=== PATIENT | male | born 1955 | race Caucasian/White ===

== ENCOUNTER 2017-03-09 16:03 | Emergency (ER) | payer MEDICARE, SELFPAY ==
[2017-03-09 16:21] VITALS: BP 77/52; PULSE 113; RESP 16; TEMP 33.6; O2SAT 100; BMI 25.8
[2017-03-09 16:21] LABS: ABG Base Excess -34.9 mmol/L (-2.4-2.3); ABG HCO3 3.6 mmhg (22.0-26.0); ABG Oxygen Saturation 96 % (90-100); ABG PCO2 42.1 mmhg (35.0-45.0); ABG PO2 158.6 mmhg (80-100); ABG TCO2 4.9 mmhg (23-27)
[2017-03-09 16:23] LABS: Oxygen 100% %; Source Right Femoral
[2017-03-09 16:24] LABS: ABG PH 6.55 mmol/L (7.35-7.45)
[2017-03-09 16:25] VITALS: BP 109/66; BP 161/79; BP 58/40; BP 79/62; BP 99/69
--- NOTE | 2017-03-09 16:37 | XR_ITS ---
XR chest portable Ordering Physician: Jocelyne Moya MD Patient Age: 62 years: Male HISTORY: ITS.REASON: INTUBATION TECHNIQUE: AP supine portable chest x-ray CODE BLUE. Respiratory arrest COMPARISON :Right shoulder 03/16/2011 FINDINGS Poor inspiration with diaphragms only down to the anterior third rib on this limited portable supine study.. apparently a airway tube was placed rather than the endotracheal tube per technologist. Prominent bibasilar atelectasis and airspace disease. Difficult to exclude associated infiltrate but mainly atelectasis and poor expansion of lungs. There is prominent and beneath left hemidiaphragm most likely reflecting pronounced gaseous distention of the stomach. Also generous gas is seen within the large bowel at the hepatic flexure. The heart is normal in size. Aorta mildly ectatic at aortic knob. Generous width of the mediastinum most likely reflect a supine portable projection with suboptimal inspiration. Defibrillator or AED pad overlying the right chest . Arthritic changes right shoulder. Scoliosis spine. IMPRESSION: Low lung volume bilaterally with pronounced bibasilar atelectasis. Pronounced bibasilar airspace disease . prominent air beneath left hemidiaphragm most likely reflects right prominent gaseous distention of stomach. Generous gas at the hepatic flexure also noted.
--- NOTE | 2017-03-09 16:56 | [facility].EDGENADL ---
ED Disposition Clinical Impression: PEA (Pulseless electrical activity), Sepsis, Mental status, decreased Hypothermia Qualifiers: Encounter type: initial encounter Qualified Code(s): T68.XXXA - Hypothermia, initial encounter Abdominal pain Qualifiers: Abdominal location: generalized Qualified Code(s): R10.84 - Generalized abdominal pain Disposition: Xfer Short-Term Hosp Condition on Discharge: Critical Forms: Transfer Record - ED - Critical Care Critical Care Time: Yes Attestation: On 03/09/17, the high probability of a clinically significant, sudden or life threatening deterioration of the following system(s) required my full and direct attention, intervention and personal management. The time I documented below is in addition to time spent performing reported procedures but includes the following listed in this critical care notation. Total Critical Care Time: 80 Vital system(s) involved:: Circulatory Failure, Respiratory Failure, Shock (Septic) My critical care processes included: Assessment & monitoring of V/S, Initial and Re-exams, Data Review/Interpretation, Coordinating Care, Medication Orders and management, Documentation Medical Decision Making Vital Signs: 03/09/17 16:21 03/09/17 18:15 Temperature 92.5 F L 91.5 F L Temperature Source Rectal Rectal Pulse Rate 72 Pulse Rate [Left Brachial] 113 H Respiratory Rate 16 12 Blood Pressure 62/43 Blood Pressure [Left Arm] 77/52 Blood Pressure Mean [Left Arm] 60 Blood Pressure Source Automatic Cuff Blood Pressure Source [Left Arm] Automatic Cuff Blood Pressure Position Supine Blood Pressure Position [Left Arm] Supine 02 Sat by Pulse Oximetry 100 Oxygen Delivery Method Non-Rebreather Mechanical Ventilation - Lab Data Lab results reviewed: Yes: I reviewed the patient's lab results. Lab Results 03/09/17 16:12: POC Glucose 239 03/09/17 16:15: Specimen Source Right femoral, O2 % 100%, ABG pH 6.55 L*, ABG pCO2 42.1, ABG pO2 158.6 H, ABG HCO3 3.6 L, ABG Total CO2 4.9 L, ABG O2 Saturation 96, ABG Base Excess -34.9 L, Hoang Test Unacceptable 03/09/17 16:30: Urine Color Yellow, Urine Appearance Cloudy, Urine pH 6.0, Ur Specific [place] 1.025, Urine Protein 100, Urine Glucose (UA) >=1000, Urine Ketones Negative, Urine Blood Trace-i, Urine Nitrate Negative, Urine Bilirubin Negative, Urine Urobilinogen 0.2, Ur Leukocyte Esterase Negative, Urine WBC 20-50, Ur Squamous Epith Cells 10-20, Urine Bacteria 4+ 03/09/17 16:30: Lactic Acid 24.3 H 03/09/17 16:30: WBC 25.4 H*, RBC 5.38, Hgb 16.0, Hct 59.2 H, MCV 110.2 H, MCH 29.8, MCHC 27.1 L, RDW 13.9, Plt Count 371, MPV 8.4, Neut % (Auto) 73.4, Lymph % (Auto) 18.6, [place] % (Auto) 6.5, Eos % (Auto) 0.8, Baso % (Auto) 0.8, Neut # (Auto) 18.7 H, Lymph # (Auto) 4.7 H, [place] # (Auto) 1.7 H, Eos # (Auto) 0.2, Baso # (Auto) 0.2, Total Counted 100, Neutrophils % (Manual) 64, Band Neutrophils % 3.0, Lymphocytes % (Manual) 21, Atypical Lymphs % 1.0, Monocytes % (Manual) 9, Eosinophils % (Manual) 2, Platelet Estimate Normal, RBC Morphology Normal 03/09/17 16:30: Sodium 140, Potassium 5.1, Chloride 97 L, Carbon Dioxide 8 L*, Anion Gap 40.1 H, BUN 33 H, Creatinine 3.90 H, Estimated Creat Clear 20, Estimated GFR 16 L*, Est GFR ( Amer) 19 L*, Glucose 299 H 03/09/17 16:30: Total Bilirubin 0.2, Direct Bilirubin 0.1, AST 27, ALT 23, Alkaline Phosphatase 86, Total Protein 7.8, Albumin 3.8 Result diagrams: 03/09/17 16:30 03/09/17 16:30 Orders (Tests/Meds): ED MEDICATIONS Generic Name Dose Route Start Last Admin Trade Name Freq PRN Reason Stop Dose Admin Epinephrine HCl 1 mg 03/09/17 20:13 03/09/17 16:32 Epinephrine 0.1mg/Ml 10ml Syringe IV 04/08/17 20:12 1 mg NEEDED PRN Administration Code Blue Med Administration Piperacillin Sod/Tazobactam 50 mls @ 100 mls/hr 03/09/17 20:15 03/09/17 18:00 Sod 3.375 gm/ Sodium Chloride IV 04/08/17 20:14 100 mls/hr Q6H TODD Administration Protocol La
--- NOTE | 2017-03-09 17:03 | ED_ITS ---
ED Disposition Clinical Impression: PEA (Pulseless electrical activity), Sepsis, Mental status, decreased Hypothermia Qualifiers: Encounter type: initial encounter Qualified Code(s): T68.XXXA - Hypothermia, initial encounter Abdominal pain Qualifiers: Abdominal location: generalized Qualified Code(s): R10.84 - Generalized abdominal pain Disposition: Xfer Short-Term Hosp Condition on Discharge: Critical Forms: Transfer Record - ED - Critical Care Critical Care Time: Yes Attestation: On 03/09/17, the high probability of a clinically significant, sudden or life threatening deterioration of the following system(s) required my full and direct attention, intervention and personal management. The time I documented below is in addition to time spent performing reported procedures but includes the following listed in this critical care notation. Total Critical Care Time: 80 Vital system(s) involved:: Circulatory Failure, Respiratory Failure, Shock ( Septic) My critical care processes included: Assessment & monitoring of V/S, Initial and Re-exams, Data Review/Interpretation, Coordinating Care, Medication Orders and management, Documentation Medical Decision Making Vital Signs: 03/09/17 16:21 03/09/17 18:15 Temperature 92.5 F L 91.5 F L Temperature Source Rectal Rectal Pulse Rate 72 Pulse Rate [Left Brachial] 113 H Respiratory Rate 16 12 Blood Pressure 62/43 Blood Pressure [Left Arm] 77/52 Blood Pressure Mean [Left Arm] 60 Blood Pressure Source Automatic Cuff Blood Pressure Source [Left Arm] Automatic Cuff Blood Pressure Position Supine Blood Pressure Position [Left Arm] Supine 02 Sat by Pulse Oximetry 100 Oxygen Delivery Method Non-Rebreather Mechanical Ventilation - Lab Data Lab results reviewed: Yes: I reviewed the patient's lab results. Lab Results 03/09/17 16:12: POC Glucose 239 03/09/17 16:15: Specimen Source Right femoral, O2 % 100%, ABG pH 6.55 L*, ABG pCO2 42.1, ABG pO2 158.6 H, ABG HCO3 3.6 L, ABG Total CO2 4.9 L, ABG O2 Saturation 96, ABG Base Excess -34.9 L, Hoang Test Unacceptable 03/09/17 16:30: Urine Color Yellow, Urine Appearance Cloudy, Urine pH 6.0, Ur Specific [place] 1.025, Urine Protein 100, Urine Glucose (UA) >=1000, Urine Ketones Negative, Urine Blood Trace-i, Urine Nitrate Negative, Urine Bilirubin Negative, Urine Urobilinogen 0.2, Ur Leukocyte Esterase Negative, Urine WBC 20- 50, Ur Squamous Epith Cells 10-20, Urine Bacteria 4+ 03/09/17 16:30: Lactic Acid 24.3 H 03/09/17 16:30: WBC 25.4 H*, RBC 5.38, Hgb 16.0, Hct 59.2 H, MCV 110.2 H, MCH 29.8, MCHC 27.1 L, RDW 13.9, Plt Count 371, MPV 8.4, Neut % (Auto) 73.4, Lymph % (Auto) 18.6, [place] % (Auto) 6.5, Eos % (Auto) 0.8, Baso % (Auto) 0.8, Neut # ( Auto) 18.7 H, Lymph # (Auto) 4.7 H, [place] # (Auto) 1.7 H, Eos # (Auto) 0.2, Baso # (Auto) 0.2, Total Counted 100, Neutrophils % (Manual) 64, Band Neutrophils % 3.0, Lymphocytes % (Manual) 21, Atypical Lymphs % 1.0, Monocytes % (Manual) 9, Eosinophils % (Manual) 2, Platelet Estimate Normal, RBC Morphology Normal 03/09/17 16:30: Sodium 140, Potassium 5.1, Chloride 97 L, Carbon Dioxide 8 L*, Anion Gap 40.1 H, BUN 33 H, Creatinine 3.90 H, Estimated Creat Clear 20, Estimated GFR 16 L*, Est GFR ( Amer) 19 L*, Glucose 299 H 03/09/17 16:30: Total Bilirubin 0.2, Direct Bilirubin 0.1, AST 27, ALT 23, Alkaline Phosphatase 86, Total Protein 7.8, Albumin 3.8 Result diagrams: 03/09/17 16:30 03/09/17 16:30 Orders (Tests/Meds): ED
[2017-03-09 17:04] LABS: Microscopic, Urine URINE MICROSCOPIC (MICROSCOPIC)
[2017-03-09 17:07] LABS: Anion Gap 40.1 mEq/L (5-15); Appearance,Urine CLOUDY (Clear); Basophils # 0.2 K/mm3 (0-0.2); Basophils % 0.8 % (0.1-2.0); Bilirubin,Urine Negative (Negative); Blood Urea Nitrogen 33 mg/dL (7-18); Blood, Urine TRACE-I (Negative); Chloride 97 mmol/L (98-107); Color,Urine YELLOW (Yellow); Creatinine Clearance Estimated 20 mL/min (0-300); Eosinophils # 0.2 K/mm3 (0.0-0.4); Eosinophils % 0.8 % (0.1-12.0); Estimated Glomerular Filt Rate 16 ml/min (>60); GFR (African American) 19 ML/MIN (>60); Glucose 299 mg/dL (74-106); Glucose,Urine (UA) >=1000 (Negative); Hematocrit 59.2 % (42.0-52.0); Ketones,Urine Negative (Negative); Leukocyte Esterase,Urine Negative (Negative); Lymphocytes # 4.7 K/mm3 (0.7-4.5); Lymphocytes % 18.6 K/mm3 (10-50); Mean Corpuscular HGB Conc 27.1 g/dL (31.8-35.4); Mean Corpuscular Hemoglobin 29.8 pg (27.0-31.2); Mean Corpuscular Volume 110.2 fl (80-94); Mean Platelet Volume 8.4 fl (7.4-10.4); Monocytes # 1.7 K/mm3 (0.1-1.0); Monocytes % 6.5 % (1.7-9.3); Neutrophils # 18.7 K/mm3 (1.8-7.8); Neutrophils % 73.4 % (37.0-80.0); Nitrate,Urine Negative (Negative); Platelet Count 371 K/mm3 (142-424); Potassium 5.1 mmoL/L (3.5-5.1); Protein,Urine 100 (Negative); Red Blood Count 5.38 M/mm3 (4.60-6.20); Red Cell Distribution Width 13.9 % (11.5-17.5); Sodium 140 mmol/L (136-145); Specific Gravity, Urine 1.025 (1.005-1.030); Urobilinogen,Urine 0.2 EU/dl (0.2); White Blood Count 25.4 K/mm3 (4.8-10.8)
[2017-03-09 17:08] LABS: Carbon Dioxide 8 mmol/L (21.0-32.0)
[2017-03-09 17:10] LABS: MANUAL DIFFERENTIAL MANUAL DIFFERENTIAL (MANUAL DIFF)
[2017-03-09 17:15] LABS: Bacteria,Urine 4+ /lpf; WBC,Urine 20-50 #/hpf (0-3)
[2017-03-09 17:33] LABS: Eosinophils % 2 % (0-3); Lymphocytes % 21 % (10-50); Monocytes % 9 % (2-9); Neutrophils % 64 % (42-76); Platelet Estimate Normal; RBC Morphology Normal; Total Cells Counted 100
[2017-03-09 17:42] LABS: Lactic Acid 24.3 mmol/L (0.4-2.0); Reflex Lactic Add Lactic Reflex
[2017-03-09 17:59] LABS: Alanine Aminotransferase 23 U/L (12-78); Albumin Level 3.8 gm/dL (3.4-5.0); Alkaline Phosphatase 86 U/L (46-116); Aspartate Amino Transferase 27 U/L (15-37); Bilirubin,Direct 0.1 mg/dL (0.0-0.2); Bilirubin,Total 0.2 mg/dL (0.2-1.0); Total Protein,Serum 7.8 gm/dL (6.4-8.2)
[2017-03-09 18:15] VITALS: BP 62/43; PULSE 72; RESP 12; TEMP 33.1; O2SAT 100
[2017-03-09 18:48] LABS: POC Glucose,Bedside 239 mg/dL
--- NOTE | 2017-03-09 20:10 | PC.NURSE ---
1642-Regained pulse at this time. Attempting intubation per Dr. Moya and [employer]. Unsuccessful attempt x3. Intubation obtained with LMA per Dr. Moya. Pt placed on ventilator per RT. 1750-[employer] arrived. Intubation obtained per flight crew. Additional EJ started on left side and OG inserted per flight crew.
--- NOTE | 2017-03-09 20:28 | PC.NURSE ---
1600-applied ap hugger, rectal temp 92.5, warm IVF's initiated. 1700-rectal temp 91.5
== END 2017-03-09 18:15 | disposition short-term general hospital (02) ==
PROVIDERS: Emergency Provider Emergency Medicine
DX: R11.2 Nausea with vomiting, unspecified (principal); I46.9 Cardiac arrest, cause unspecified; A41.9 Sepsis, unspecified organism; T68.XXXA Hypothermia, initial encounter; R10.84 Generalized abdominal pain; E11.65 Type 2 diabetes mellitus with hyperglycemia; R94.31 Abnormal electrocardiogram [ECG] [EKG]; I95.0 Idiopathic hypotension
CPT/HCPCS: 31500; 94002; 71045; 80048; 80076; 81001; 82803; 82962; 83605; 85007; 85025; 87040; 87086; 92950; 93005; 96360; 96361; 96365; 96367; 96375; 99291; J2543